=== PATIENT | female | born 2000 | race Caucasian/White ===

== ENCOUNTER 2019-10-12 09:08 | Emergency (ER) | payer MEDICAID ==
[~2019-10-12] VITALS: Ht 160 cm; Wt 82.1 kg
[~2019-10-12 09:08] MED LIST: ACET325T14 PO; ALBU0.63 NEB; PNV1TABL4 PO
--- NOTE | 2019-10-12 09:18 | NUR ---
NA X1
--- NOTE | 2019-10-12 09:27 | NUR ---
NA X2
--- NOTE | 2019-10-12 09:51 | NUR ---
PT HERE WITH C/O ABDOMINAL CRAMPING, BROWN DISCHARGE WITH ODOR, STTES 10 WKS , OB DR. PIPER. . LMP 07/28/19. PT AAO X 4, STATES HX UTI AND ASTHMA, PRENATALS DAILY. PT DRESSED IN GOWN AND ATTACHED TO MONITOR. CALL LIGHT WITHIN REACH.
[2019-10-12] MEDS ORDERED: PREN-3 PO (09:55)
--- NOTE | 2019-10-12 10:20 | NUR ---
MD TO BEDSIDE FOR EXAM.
--- NOTE | 2019-10-12 10:42 | NUR ---
PT TO US.
[2019-10-12 10:50] LABS: MICROSCOPIC INDICATED
[2019-10-12 10:51] LABS: CULTURE INDICATED? YES
--- NOTE | 2019-10-12 11:08 | NUR ---
PT BACK FROM US.
--- NOTE | 2019-10-12 11:14 | NUR ---
ALL RESULTS BACK AT THIS TIME, CHART UP FOR RECHECK.
[2019-10-12 11:48] VITALS: BP 109/63
--- NOTE | 2019-10-12 11:49 | NUR ---
PT RESTING ON GURNEY, ON MONITOR, CALL LIGHT WITHIN REACH.
[2019-10-12 11:52] LABS: BASOPHILS # (AUTO) 0.02 x10^3/uL (0-0.3); BASOPHILS % (AUTO) 0 % (0-1); EOSINOPHILS # (AUTO) 0.07 x10^3/uL (0-0.8); EOSINOPHILS % (AUTO) 1 % (1-7); LYMPHOCYTES # (AUTO) 2.03 x10^3/uL (1-6.1); LYMPHOCYTES % (AUTO) 32 % (22-44); MD NO; MEAN CORPUSCULAR HEMOGLOBIN 29.8 pg (27.0-34.8); MEAN CORPUSCULAR HGB CONC 33.5 g/dL (32.4-35.8); MEAN CORPUSCULAR VOLUME 88.9 fL (80-100); MEAN PLATELET VOLUME 8.2 fL (7.4-10.4); MONOCYTES # (AUTO) 0.51 x10^3/uL (0-1.4); MONOCYTES % (AUTO) 8 % (2-9); NEUTROPHILS # (AUTO) 3.74 x10^3/uL (1.8-8.0); NEUTROPHILS % (AUTO) 59 % (42-75); PLATELET COUNT 240 x10^3/uL (130-400); RED BLOOD COUNT 4.82 x10^6/uL (3.82-5.3)
[2019-10-12 12:07] LABS: ALBUMIN 3.5 g/dL (3.4-5.0); ANION GAP 7 mmol/L (5-15); CALCIUM 7.9 mg/dL (8.5-10.1); CHLORIDE 108 mmol/L (98-107); CREATININE 0.53 mg/dL (0.55-1.02)
--- NOTE | 2019-10-12 12:48 | NUR ---
Patient/Caregiver given discharge instructions and they have confirmed that they understand the instructions. Patient ambulatory with steady gait.
== END 2019-10-12 12:57 | disposition home or self-care (01) ==
LOC: ED 12:50
DX: O20.0 Threatened abortion (principal); J45.909 Unspecified asthma, uncomplicated; Z3A.10 10 weeks gestation of pregnancy
CPT/HCPCS: 36415; 76801; 80048; 81001; 82040; 84702; 85025; 86901; 87086; 99284

== ENCOUNTER 2019-10-19 20:08 | Emergency (ER) | payer MEDICAID ==
[~2019-10-19] VITALS: Ht 160 cm; Wt 84.0 kg
[~2019-10-19 20:08] MED LIST changes: +PREN-3 PO
--- NOTE | 2019-10-19 20:10 | NUR ---
EPIDEMIOLOGY INTERN. NO ANSWER X1 TO TRIAGE FROM LOBBY AT THIS TIME
[2019-10-19 20:14] VITALS: BP 105/75
--- NOTE | 2019-10-19 21:40 | NUR ---
pt called to room from lobby
[2019-10-19 21:49] LABS: BASOPHILS # (AUTO) 0.04 x10^3/uL (0-0.1); BASOPHILS % (AUTO) 0 % (0-1); EOSINOPHILS # (AUTO) 0.17 x10^3/uL (0-0.4); EOSINOPHILS % (AUTO) 2 % (1-7); LYMPHOCYTES # (AUTO) 2.87 x10^3/uL (1-3.4); LYMPHOCYTES % (AUTO) 29 % (22-44); MD NO; MEAN CORPUSCULAR HEMOGLOBIN 30.2 pg (27.0-34.8); MEAN CORPUSCULAR HGB CONC 33.4 g/dL (32.4-35.8); MEAN CORPUSCULAR VOLUME 90.4 fL (80-100); MEAN PLATELET VOLUME 8.6 fL (7.4-10.4); MONOCYTES # (AUTO) 0.59 x10^3/uL (0.2-0.8); MONOCYTES % (AUTO) 6 % (2-9); NEUTROPHILS # (AUTO) 6.24 x10^3/uL (1.8-6.8); NEUTROPHILS % (AUTO) 63 % (42-75); PLATELET COUNT 240 x10^3/uL (130-400); RED CELL DISTRIBUTION WIDTH 13.4 % (9.6-15.2)
[2019-10-19 22:14] LABS: MICROSCOPIC NOT IND
[2019-10-19 22:16] LABS: CULTURE INDICATED? NO
--- NOTE | 2019-10-19 22:47 | NUR ---
Patient/Caregiver given discharge instructions and they have confirmed that they understand the instructions. Patient ambulatory with steady gait.
== END 2019-10-19 22:57 | disposition home or self-care (01) ==
LOC: ED 22:30
DX: O20.0 Threatened abortion (principal); J45.909 Unspecified asthma, uncomplicated; Z3A.11 11 weeks gestation of pregnancy
CPT/HCPCS: 36415; 76801; 81003; 84702; 85025; 86901; 99284

== ENCOUNTER 2019-12-11 10:55 | Emergency (ER) | payer MEDICAID ==
[~2019-12-11] VITALS: Ht 160 cm; Wt 82.2 kg
[2019-12-11 12:45] VITALS: BP 102/68
== END 2019-12-11 13:19 | disposition home or self-care (01) ==
LOC: ED 13:00
DX: O9A.212 Injury, poisoning and certain other consequences of external causes complicating pregnancy, second trimester (principal); S39.92XA Unspecified injury of lower back, initial encounter; Z3A.19 19 weeks gestation of pregnancy; Z00.00 Encounter for general adult medical examination without abnormal findings; W00.0XXA Fall on same level due to ice and snow, initial encounter; Y93.89 Activity, other specified; Y92.098 Other place in other non-institutional residence as the place of occurrence of the external cause; Y99.8 Other external cause status
CPT/HCPCS: 76815; 99284